=== PATIENT | male | born 1955 | race Caucasian/White ===

== ENCOUNTER → 2023-04-13 | Day surgery (SDC) | payer OTHER ==
[~2023-04-13] VITALS: Ht 177.8 cm; Wt 133.3 kg
[~2023-04-13] MED LIST: LIDOCAINE 2% 100MG/5ML SDV (FOR ANES.) As Ordered ONE; METF-877 PO; NS 1,000 ML IV ONE; OMEP-173 PO; TRAZ-186 PO; propofoL 200 MG/20 ML VIAL As Ordered ONE
[2023-04-13 10:07] VITALS: TEMP 97.5
[2023-04-13 10:21] VITALS: BP 114/75; O2SAT 97
== END | disposition home or self-care (01) ==
LOC: M OPP 08:21
PROVIDERS: ATTEND Internal Medicine Gastroenterology
DX: Z86.010 Personal history of colon polyps (principal); Z80.0 Family history of malignant neoplasm of digestive organs; K64.0 First degree hemorrhoids; E11.9 Type 2 diabetes mellitus without complications; K21.9 Gastro-esophageal reflux disease without esophagitis; M19.90 Unspecified osteoarthritis, unspecified site; F41.9 Anxiety disorder, unspecified; F43.10 Post-traumatic stress disorder, unspecified; Z96.89 Presence of other specified functional implants; Z79.84 Long term (current) use of oral hypoglycemic drugs; Z79.899 Other long term (current) drug therapy